=== PATIENT | female | born 1995 | race American Indian/Alaskan Native ===

== ENCOUNTER 2019-05-15 08:54 | Emergency (ER) | payer SELFPAY ==
[2019-05-15 08:59] VITALS: BP 106/61
--- NOTE | 2019-05-15 12:47 | Emergency Department Report ---
ED ENT HPI - General Chief complaint: Sore Throat Stated complaint: HEADACHE/RAMIRO/SORETHROAT PAIN Time Seen by Provider: 05/15/19 11:48 Source: patient Mode of arrival: Ambulatory Limitations: No Limitations - History of Present Illness Initial comments: This is a 24-year-old -[place] female who presents to the emergency room with sore throat, dysphasia, headache, and dizziness for 4 days. No significant past medical history. Patient states she hasn't tried anything for symptomatic relief. She reports her children were sick last week and she thinks she caught something from them. She denies myalgia, fever, weakness, cough, abdominal pain, nausea, vomiting, or diarrhea. MD complaint: sore throat Onset/Timin -: days(s) Location: throat Severity: moderate Severity scale (0 -10): 7 Quality: aching Consistency: intermittent Improves with: none Worsens with: swallowing, eating Associated Symptoms: pain with swallowing, sore throat. denies: fever, cough, tinnitus - Related Data Previous Rx's Medication Instructions Recorded Last Taken Type Codeine Phosphate/Guaifenesin 20 ml PO Q6H #1 bottle 05/15/19 Unknown Rx [Robafen AC Oral Solution] Ibuprofen [Motrin 600 MG tab] 600 mg PO Q8H PRN #20 tablet 05/15/19 Unknown Rx methylPREDNISolone [Medrol 4MG 4 mg PO DAILY #1 tab.ds.pk 05/15/19 Unknown Rx DOSEPAK (21 tabs)] Allergies Allergy/AdvReac Type Severity Reaction Status Date / Time No Known Allergies Allergy Unverified 05/15/19 08:59 ED Dental HPI - General Chief complaint: Sore Throat Stated complaint: HEADACHE/RAMIRO/SORETHROAT PAIN Time Seen by Provider: 05/15/19 11:48 Source: patient Mode of arrival: Ambulatory Limitations: No Limitations - Related Data Previous Rx's Medication Instructions Recorded Last Taken Type Codeine Phosphate/Guaifenesin 20 ml PO Q6H #1 bottle 05/15/19 Unknown Rx [Robafen AC Oral Solution] Ibuprofen [Motrin 600 MG tab] 600 mg PO Q8H PRN #20 tablet 05/15/19 Unknown Rx methylPREDNISolone [Medrol 4MG 4 mg PO DAILY #1 tab.ds.pk 05/15/19 Unknown Rx DOSEPAK (21 tabs)] Allergies Allergy/AdvReac Type Severity Reaction Status Date / Time No Known Allergies Allergy Unverified 05/15/19 08:59 ED Review of Systems ROS: Stated complaint: HEADACHE/ARMIRO/SORETHROAT PAIN Other details as noted in HPI Constitutional: denies: chills, fever ENT: throat pain, congestion. denies: ear pain Respiratory: denies: cough, shortness of breath, wheezing Cardiovascular: denies: chest pain, palpitations Gastrointestinal: denies: abdominal pain, nausea, diarrhea Musculoskeletal: denies: back pain, joint swelling, arthralgia Skin: denies: rash, lesions Neurological: headache, vertigo. denies: weakness, paresthesias Psychiatric: denies: anxiety, depression ED Past Medical Hx - Past Medical History Previous Medical History?: No - Surgical History Past Surgical History?: No - Medications Home Medications: Home Medications Medication Instructions Recorded Confirmed Last Taken Type Codeine Phosphate/Guaifenesin 20 ml PO Q6H #1 bottle 05/15/19 Unknown Rx [Robafen AC Oral Solution] Ibuprofen [Motrin 600 MG tab] 600 mg PO Q8H PRN #20 tablet 05/15/19 Unknown Rx methylPREDNISolone [Medrol 4MG 4 mg PO DAILY #1 tab.ds.pk 05/15/19 Unknown Rx DOSEPAK (21 tabs)] ED Physical Exam - General Limitations: No Limitations General appearance: alert, in no apparent distress, obese - ENT ENT exam: Present: mucous membranes moist, TM's normal bilaterally, normal external ear exam, other (turbinates congested with clear discharge). Absent: normal orophraynx (erythematous and enlarged tonsils without exudate, uvula midline, no tongue elevation) - Neck Neck exam: Present: normal inspection. Absent: lymphadenopathy - Respiratory Respiratory exam: Present: normal lung sounds bilaterally. Absent: respiratory distress, wheezes, rales, rhonchi, stridor - Cardiovascular Cardiovascular Exam: Present: regular rate, normal rhythm. Absent: systolic murmur, diastolic murmur, rubs, gallop - GI/Abdominal GI/Abdominal exam: Present: soft, normal bowel sounds. Absent: distended, tenderness, guarding, rebound, rigid - Extremities Exam Extremities exam: Present: normal inspection - Neurological Exam Neurological exam: Present: alert, oriented X3, normal gait - Psychiatric Psychiatric exam: Present: normal affect, normal mood - Skin Skin exam: Present: warm, dry, intact, normal color. Absent: rash ED Course Vital Signs 05/15/19 08:57 Temperature 99.3 F Pulse Rate 107 H Respiratory 18 Rate Blood Pressure 106/61 O2 Sat by Pulse 96 Oximetry ED Medical Decision Making - Lab Data Lab Results 05/15/19 05/15/19 Range/Units 12:10 12:10 Influenza A (Rapid) Negative (Negative) Influenza B (Rapid) Negative (Negative) Group A Strep Rapid Negative (Negative) - Medical Decision Making 24 y.o. female that presents with sore throat, dizziness, and headache for 4 days. Patient examined by me and stable. VSS and patient in no acute distress. Negative rapid flu and strep. Given analgesics while in the ER. No history of immunocompromise. Nontoxic appearance. Patient no trismus, no airway compromise. Able to tolerate by mouth. Denies fever and cough. Given History and Exam I have low suspicion for cause of INSOLE TACK PULLER HAND, Epiglottitis, Bacterial Tracheitis, acute HIV, or Strep throat. Start short course of antibiotics, NSAIDs, and decongestant. Reviewed results with patient. Discharge home with prompt outpatient PCP follow up; return precautions discussed. Critical care attestation.: If time is entered above; I have spent that time in minutes in the direct care of this critically ill patient, excluding procedure time. ED Disposition Clinical Impression: Sore throat, Tension headache, Acute viral pharyngitis Disposition: - TO HOME OR SELFCARE Is pt being admited?: No Condition: Stable Instructions: Pharyngitis (ED) Additional Instructions: Increase fluid intake and rest. Wash hands frequently. Continue taking Tylenol or ibuprofen to control fever. F/U with Primary Care Provider. Return to ER if fever, shortness of breath, or difficulty breathing after 48 hours of supportive care. Prescriptions: methylPREDNISolone [Medrol 4MG DOSEPAK (21 tabs)] 4 mg PO DAILY #1 tab.ds.pk Ibuprofen [Motrin 600 MG tab] 600 mg PO Q8H PRN #20 tablet PRN Reason: Pain Codeine Phosphate/Guaifenesin [Robafen AC Oral Solution] 20 ml PO Q6H #1 bottle Referrals: [facility] [Outside] - 3-5 Days [facility] [Outside] - 3-5 Days [facility] [Outside] - 3-5 Days USMAN RIGGS MD [Staff Physician] - 3-5 Days Forms: Work/School Release Form(ED) Time of Disposition: 13:39
== END 2019-05-15 14:24 | disposition home or self-care (01) ==
LOC: ED 08:54
DX: G44.209 Tension-type headache, unspecified, not intractable (principal); J02.9 Acute pharyngitis, unspecified; Z79.899 Other long term (current) drug therapy
CPT/HCPCS: 87116; 87400; 87430